=== PATIENT | female | born 1995 | race Caucasian/White ===

== ENCOUNTER 2017-05-12 08:02 | Day surgery (SDC) | payer BC, MEDICAID ==
[~2017-05-12 08:02] MED LIST: Dextrose 5%-Lactated Ringers 1,000 ML IV SCH
[2017-05-12] MEDS ORDERED: Midazolam 1 MG/ML 2 ML SDV ONE (08:43)
[2017-05-12] MEDS ORDERED: Propofol 200 MG/20 ML SDV ONE (08:43)
[2017-05-12] MEDS ORDERED: fentaNYL 100 MCG/2 ML SDV ONE (08:43)
[2017-05-12 10:12] VITALS: BP 105/74
--- NOTE | 2017-05-13 08:05 | OR ---
DATE OF PROCEDURE: 05/12/2017 PREOPERATIVE DIAGNOSIS: Upper abdominal pain. POSTOPERATIVE DIAGNOSES: Upper abdominal pain, etiology unknown. Small gastric polyp. PROCEDURES: Esophagogastroduodenoscopy with biopsy resection of small gastric polyp. SURGEON: Murtaza Villalobos MD. ANESTHESIA: IV anesthesia with monitored anesthesia care. INDICATION: This 21-year-old white female complains of upper abdominal pain. Today, the pain is in her left upper quadrant. She has had an extensive workup, including celiac screening, ESR, CBC, CMP, UA, CT of the abdomen and pelvis, all of which were unremarkable. She has a history of a laparoscopic cholecystectomy for early acute cholecystitis with cholelithiasis. She is here for an upper endoscopy. I counseled her for an upper endoscopy with possible biopsy, including the risks and alternatives, and she gave her informed consent to proceed. DESCRIPTION OF PROCEDURE: The patient was placed in the left lateral decubitus position. IV anesthesia was administered by the Anesthesia Service. Time-out was held. The flexible video Olympus upper endoscope was passed through her mouth, down her esophagus, and into her stomach. The scope was easily passed through the pylorus and into the duodenum , reaching its third portion. The scope was then slowly withdrawn, examining the mucosa throughout. The duodenal mucosa appeared unremarkable. The scope was brought up through the pylorus. The antrum appeared unremarkable. The scope was retroflexed. The proximal stomach appeared unremarkable. The scope was straightened. We did encounter a small polyp in the midbody of the stomach, which was removed with the biopsy forceps. The scope was then brought up through the GE junction, this appeared unremarkable, and then up through the unremarkable- appearing esophagus and it was removed. She tolerated the procedure well. Murtaza Villalobos MD /[id number] MTDD
== END 2017-05-12 10:21 | disposition home or self-care (01) ==
LOC: JP.SDS 08:02
PROVIDERS: ATTEND Surgery
DX: K31.7 Polyp of stomach and duodenum (principal); F41.9 Anxiety disorder, unspecified; F32.9 Major depressive disorder, single episode, unspecified; E66.9 Obesity, unspecified
CPT/HCPCS: 43239; 88305; J2250; J2704; J3010; J7042